=== PATIENT | female | born 1985 | race Caucasian/White ===

== ENCOUNTER 2016-12-11 14:55 | Emergency (ER) | payer OTHER ==
[~2016-12-11] VITALS: Ht 160 cm; Wt 47.7 kg
[2016-12-11 15:03] VITALS: BP 117/76; PULSE 118; RESP 16; O2SAT 99
[2016-12-11 16:09] VITALS: RESP 26; O2SAT 98
[2016-12-11] MEDS ORDERED: 0.9% Sodium Chloride 1,000 ML IV ONE (16:10)
--- NOTE | 2016-12-11 16:45 | DRSVH ---
PROCEDURE: X-RAY CHEST, TWO VIEWS ([id number]) INDICATIONS: cough TECHNIQUE: 2 views of the chest were acquired. COMPARISON: None. FINDINGS: Surgical changes and devices: None. Lungs and pleura: No pleural effusions or pneumothorax. Lungs are clear. Mediastinum: Mediastinal contours are normal. Heart size is normal. Bones and chest wall: No suspicious bony abnormalities. Soft tissues appear unremarkable. IMPRESSION: Normal for age. Dictated by: Franck Thrasher M.D. on 12/11/2016 at 16:44 Approved by: Franck Thrasher M.D. on 12/11/2016 at 16:44
[2016-12-11] MEDS ORDERED: _Ondansetron ODT 4 mg Tablet PO PRN (18:40)
[2016-12-11] MEDS ORDERED: Ondansetron 8 mg ODT Tablet PO ONE (18:50)
--- NOTE | 2016-12-11 19:01 | ED.REPORT ---
[id number] Illness Date of Service Dec 11, 2016 ED Provider: Danish Liao MD Ms. Daphne Montalvo is a pleasant young lady with a benign past medical history who presents to [facility] emergency Department with persistent symptoms of cough, mild nausea and vomiting, body aches, and subjective fevers. She reports being diagnosed with viral pneumonia 3 weeks ago at [place] in [place] with no antibiotics. Since then she claims the illness has not gotten better or worse, until one week ago where she began coughing again. She reports that she began experiencing muscle aches and painful cough 4 days ago. The day following this event [id number] son began experiencing subjective fevers and chills, mild diffuse pustular rash distributed on his extremities, his trunk, and his oral cavity. At which point he also began coughing and was described as a more mild barky croup sound. Nursing Notes Stated Complaint: FEVER,COUGH, PAIN Chief Complaint: FLU/Cold Symptoms Nursing Notes Reviewed: Yes Allergies: Coded Allergies: amoxicillin (Verified Allergy, Severe, Anaphylaxis, 12/11/16) Uncoded Allergies: PENICILLIN (Allergy, Severe, Anaphylaxis, 12/11/16) ERYTHROMYCIN (Allergy, Intermediate, Hives, 12/11/16) General Time Seen by Provider: 16:00 Chief Complaint Body aches, Cough, Fever, Nasal congestion, Nausea, Vomiting Hx Obtained From: Patient Review of Systems Review of Systems Note: A comprehensive review of systems was conducted with the patient and found to be negative except as above in the History of Present Illness. Physical Exam Physical Exam Notes: General: Young lady sitting with her son upright in bed in no acute distress, well-developed, well-nourished, appropriately interactive HEENT: Normocephalic, atraumatic. External ears without defect. Pupils equal, round, and reactive to light and accommodation. Anicteric sclerae, moist conjunctivae, and no lid lag. Oropharynx free of erythema and cobble stoning with moist mucosa. Neck: Supple with full range of motion. No jugular venous distension. No bruits. No lymphadenopathy or thyromegaly. Cardiovascular: Regular rate and rhythm with no murmurs, rubs, or gallops appreciated Pulmonary: Clear to auscultation bilaterally with no crackles, wheezes, or rhonchi. Normal respiratory effort with no use of accessory muscles. Persistant dry cough with deep inhalation. Abdomen: Bowel tones present. Soft, nontender, nondistended. No hepatosplenomegaly or masses appreciated. Extremities: No clubbing, cyanosis, edema, or lymphadenopathy appreciated. Skin: Normal temperature, turgor, and texture; no rash, ulcers, or subcutaneous nodules appreciated. Tattoos present. Neurological: Cranial nerves grossly intact. Normal muscle strength, tone, and bulk. Reflexes, coordination, and sensory function within normal limits. No known gait impairment. Psychiatric: Normal mood and affect. Alert and oriented to person, place, and time. Initial Vital Signs Vital Signs (First) Date Time Temp Pulse Resp B/P Pulse Ox O2 Delivery O2 Flow Rate FiO2 12/11/16 15:03 36.9 118 16 117/76 99 Room Air Interpretation & Diagnostics Lab Results Interpretation Test 12/11/16 17:06 Hold Purple Top Tube Received (Received) Hold Blue Top Tube Received (Received) Hold Red Top Tube Received (Received) Hold [place] Top Tube Received (Received) Re-Evaluation & [facility] Med Decision/Clinical Course Ms. Daphne Montalvo presents with a 1 month history of persistent cough following viral pneumonia diagnosis. Current symptoms 1 week old. 1. Influenza A diagnosed via rapid test. Tachycardic, afebrile, cough IV fluids 1 L NS - Flu swab, rapid positive for Influenza A. - Chest x-ray - test negative. - Acetaminophen for fevers Patient Discharge & Departure Shift Change Sign-Out Discussed Complaint(s): Yes Laboratory Evaluation: Lab evaluation discussed Imaging Studies: Imaging discussed Response to Therapy: Unchanged Impression: Primary Impression: Influenza due to influenza A virus Disposition: Home Discharge Condition All VS Reviewed: Yes Condition: Stable Patient Instructions: Influenza (DC) Additional Instructions: During you visit to [facility] Emergency Department we obtained X ray imaging of your lungs. Your imaging showed no acute processes or abnormalities. We will send you home with - 4 doses of dissolvable anti nausea medications (Zofran). Do not hesitate to call emergency services or your primary care physician if you experience any of the following. - High unrelenting fevers. - Another episode of amnesia. - Uncontrolled vomiting and severe dehydration. - Severe hypertension. - Syncope or loss of consciousness. - Chest pain or severe shortness of breath. Follow up with your primary care physician in 1-2 weeks time following your emergency department visit for medication checks and general well-being. The [facility] residency clinic is a great option for primary care. Referrals: [facility] (PCP) [facility] EDSupervising Provider for APC: Danish Liao MD Attending Statement Attending attestation: I saw this patient in conjunction with the above named resident. I was present for all babin portions of the history taking and physical examination. I agree with the workup, evaluation, treatment and disposition. Danish Liao MD copies to: [facility] KEVIN ROJAS DO Dec 11, 2016 16:36 Danish Liao MD Dec 11, 2016 23:16
== END 2016-12-11 19:56 | disposition home or self-care (01) ==
LOC: SED 14:55
DX: J10.1 Influenza due to other identified influenza virus with other respiratory manifestations (principal); Z88.1 Allergy status to other antibiotic agents
CPT/HCPCS: 71020; 87804; 96360; 99284; J7030